=== PATIENT | female | born 1940 | race Caucasian/White ===

== ENCOUNTER 2021-03-09 10:39 | Emergency (ER) | payer MEDICARE ==
[~2021-03-09 10:39] MED LIST: ANTIVERT25 MG PO; ASPIR-TRIN325 MG PO; COZAAR100 MG PO; FEOSOL325 MG PO; LACTINEX1 EACH PO; LEVAQUIN500 MG PO; MUCINEX 600MG600 MG PO; PERCOCET 5-3251 EACH PO; PRINIVIL20 MG PO; SYNTHROID88 MCG PO; ULTRAM50 MG PO
[2021-03-09 12:45] LABS: BASOPHIL 0.2 % (0-2); EOSINOPHIL 0.1 % (0-7); HCT 40.5 % (37.0-47.0); LYMPHOCYTE 14.2 % (15-48); MCHC 34.6 g/dL (32.0-36.0); MCV 92.7 fL (78.0-100.0); MONOCYTE 7.6 % (0-12); MPV 10.2 fL (6.0-9.5); NEUTROPHIL 77.5 % (41-80); NRBC 0; PLT 324 K/uL (150-400); RBC 4.37 M/uL (4.20-5.40); WBC 15.8 K/uL (4.0-10.5)
[2021-03-09 13:33] LABS: ALBUMIN 3.8 g/dL (3.4-5.0); BILIRUBIN - TOTAL 0.7 mg/dL (0.2-1.0); BUN/CREAT RATIO (CALC) 22.4 RATIO; CREATININE 0.85 mg/dL (0.51-0.95); GLOBULIN (CALCULATION) 3.6 g/dL; POTASSIUM 3.4 mmol/L (3.5-5.1); TOTAL PROTEIN 7.4 g/dL (6.4-8.2)
[2021-03-09 13:36] LABS: BILIRUBIN NEGATIVE (NEGATIVE); BLOOD 1+ Ery/uL (NEGATIVE); CLARITY CLEAR (CLEAR); COLOR YELLOW (YELLOW); GLUCOSE (U) NORMAL (NORMAL); LEUKOCYTES NEGATIVE Leu/uL (NEGATIVE); NITRITE NEGATIVE (NEGATIVE); PROTEIN NEGATIVE (NEGATIVE); SPECIFIC GRAVITY <=1.005 (1.001-1.030); UROBILINOGEN 0.2 mg/dL (0.2-1.0); pH 6.5 (5.0-9.0)
[2021-03-09 13:49] LABS: SQUAMOUS EPITHELIAL CELLS RARE; URINARY WBC RARE
[2021-03-09] MEDS ORDERED: CIPRO500 MG PO (15:12)
[2021-03-09] MEDS ORDERED: METRONIDAZOLE500 MG PO (15:12)
[2021-03-09] MEDS ORDERED: ONDANSETRON ODT4 MG PO (15:12)
== END 2021-03-09 15:31 | disposition home or self-care (01) ==
LOC: FER 10:39
PROVIDERS: Emergency Medicine
DX: K52.9 Noninfective gastroenteritis and colitis, unspecified (principal); I10 Essential (primary) hypertension; E03.9 Hypothyroidism, unspecified; Z90.710 Acquired absence of both cervix and uterus
CPT/HCPCS: 36415; 80053; 81001; 85025; 93005; J2405; J7030; Q9967